=== PATIENT | female | born 1990 | race Caucasian/White ===

== ENCOUNTER 2016-04-10 17:32 | Emergency (ER) ==
--- NOTE | 2016-04-10 18:08 | PROVIDER DOCUMENTATION ---
HPI-Abdominal Pain/GI Problem - General Chief Complaint: Rectal Bleeding Stated Complaint: RECTAL BLEED Time Seen by Provider: 04/10/16 17:45 Source: patient Allergies/Adverse Reactions: Patient Allergies Allergy/AdvReac Type Severity Reaction Status Date / Time cefprozil [From Cefzil] Allergy Unknown Unknown Verified 04/10/16 17:50 Penicillins Allergy Unknown Unknown Verified 04/10/16 17:50 Home Medications: Home Medication List Medication Instructions Recorded Confirmed Last Taken Type Polyethylene Glycol 3350 [Miralax] 510 gm PO DAILY #1 powder 04/10/16 Unknown Rx - History of Present Illness-ABD Nature of Presenting Problems: 25 y/o WF c/o rectal bleeding x 2 today. States it happened after she had a BM. Only has 2-3 BMs a week. Denies abdominal pain, nausea or vomiting. She is anxious about this. States only when she wipes, bright red blood. Does not know of any hemorrhoids. She put a tampon in to make sure it was not her menses and states not blood on the tampon. Review of Systems - Adult - REVIEW OF SYSTEMS - ADULT Constitutional: reports: no symptoms reported. denies: chills, fever, fatique Eyes: reports: no symptoms reported. denies: decreased vision, blurred vision, double vision, eye pain Ears, Nose, Mouth & Throat: reports: no symptoms reported. denies: ear pain, nose pain, throat pain Cardiovascular: reports: no symptoms reported. denies: chest pain, palpitations Respiratory: reports: no symptoms reported. denies: cough, shortness of breath Gastrointestinal: reports: see HPI, rectal bleeding. denies: abdominal pain, diarrhea, nausea, vomiting Genitourinary: reports: no symptoms reported. denies: dysuria, discharge, frequency, incontinence Musculoskeletal: reports: no symptoms reported. denies: bone pain, back pain, muscle aches Integumentary: reports: no symptoms reported. denies: rash Neurological: reports: no symptoms reported. denies: dizziness/vertigo, headache/migraines Psychiatric: reports: no symptoms reported Endocrine: reports: no symptoms reported Hematologic/Lymphatic: reports: no symptoms reported Allergic/Immunologic: reports: no symptoms reported All Other Systems: Reviewed and Negative Past History - Adult - PAST MEDICAL HISTORY-ADULT Review of Records: reports: Old Records Reviewed, Nursing Assessment Review, Medications Reviewed, Social history reviewed & non-contributory. Major Childhood Illnesses: reports: denies history Cardiovascular: reports: denies history Respiratory: reports: denies history Gastrointestinal: reports: GERD Obstetrical/Gynecological: reports: ectopic Genitourinary: reports: denies history Musculoskeletal: reports: denies history Neurological: reports: denies history Psychiatric: reports: bipolar, depression Endocrine/Immune: reports: denies history Other Conditions: reports: denies history - PRIOR SURGERIES/PROCEDURES Surgical/Procedure History: reports: BTL, , tonsillectomy - IMMUNIZATION STATUS Childhood Immunizations: See Nurse Assessment Flu Vaccine: See Nurse Assessment - FAMILY HISTORY Family History: reviewed, not pertinent - SOCIAL HISTORY Smoking: less than 1 pack/day Provider spent 3-5 mins advising pt. on dangers of tobacco.: Discussed manners to quit use, and f/u contacts for add'l counseling. Substance Use: marijuana Alcohol Use Frequency: occasionally Living Situation: family Physical Exam-General - PHYSICAL EXAM-ADULT Initial Vital Signs Reviewed: Yes - CONSTITUTIONAL General Appearance: appears well, alert, anxious - EYES Eyes: PERRL/EOMI, pink conjunctivae - HEAD, EARS, NOSE, MOUTH & THROAT HENMT: normocephalic/atraumatic, moist mucous membranes - NECK Neck: non-tender, full range of motion, supple, normal inspection - RESPIRATORY Respiratory: chest non-tender, lungs clear, normal breath sounds, no pleuratic chest pain, no respiratory distress, no accessory muscle use. negative: respiratory distress, decreased breath sounds, accessory muscle use, crackles, rales, rhonchi, wheezing - CARDIOVASCULAR Cardiovascular: normal peripheral pulses, regular rate, rhythm - GASTROINTESTINAL (ABDOMEN) Abdominal Exam: normal bowel sounds, non tender, soft, no organomegaly, no pulsatile mass. negative: abdominal bruit, abnormal bowel sounds, distended, guarding, rigid, rebound, tenderness - GENITOURINARY Rectal Exam: hemorrhoids (internal), tenderness Hemoccult Exam: heme negative stool - MUSCULOSKELETAL Extremity: normal gait - SKIN Integumentary: normal color, normal turgor, warm/dry - NEUROLOGIC Neurologic: grossly normal, no motor/sensory deficits - PSYCHIATRIC Psych/Mental Status: normal mood/affect, normal thought content, normal thought process, oriented x 3 Progress - PLAN OF CARE/RESULTS Progress/Plan/Lab Results: Vital Signs Temp Pulse Resp BP Pulse Ox 04/10/16 17:37 98.4 F 130 H 26 H 118/83 100 cefprozil [From Cefzil] Allergy (Unknown, Verified 04/10/16 17:50) Unknown Penicillins Allergy (Unknown, Verified 04/10/16 17:50) Unknown Polyethylene Glycol 3350 [Miralax] 510 gm PO DAILY #1 powder 04/10/16 Laboratory 04/10/16 18:18 WBC 7.06 RBC 4.88 Hgb 14.7 Hct 43.0 MCV 88.1 MCH 30.1 MCHC 34.2 RDW Std Deviation 13.8 Plt Count 242 MPV 10.8 H Immature Gran % (Auto) 0.0 Neut % (Auto) 54.3 Lymph % (Auto) 32.0 Clayton % (Auto) 11.2 H Eos % (Auto) 1.7 Baso % (Auto) 0.8 Immature Gran # (Auto) 0.00 Neut # (Auto) 3.83 Lymph # (Auto) 2.26 Clayton # (Auto) 0.79 H Eos # (Auto) 0.12 Baso # (Auto) 0.06 Orders Category Date Time Status CBC WITH ELECTRONIC DIFF [HEME] Stat Lab 04/10/16 18:18 Completed OCCULT BLOOD SCREENING [STOOL] Stat Lab 04/10/16 17:57 Completed occult negative Departure - Departure Time of Disposition Order: 18:37 DIAGNOSIS: Hemorrhoid Qualifiers: Hemorrhoid type: unspecified Qualified Code(s): K64.9 - Unspecified hemorrhoids Disposition: HOME 01 Certified Medical Emergency: Emergent Condition: Stable Additional Instructions: ED Follow Up Instructions: You have been treated by a care provider in the Emergency Department. These instructions are being provided to you so you can have an understanding of how to care for yourself upon discharge. Upon discharge from the Emergency Department, you are responsible for making arrangements for follow-up care by a physician of your choice. Take all prescribed medications as directed. Return to the Emergency Department immediately for any new or worsening symptoms. You may call the Physician Referral phone number at [phone] to obtain a list of Physicians who are taking new patients. Prescriptions: Polyethylene Glycol 3350 [Miralax] 510 gm PO DAILY #1 powder Referrals: None,PCP [Primary Care Provider] - Forms: Return to School/Parent Work Instructions: Hemorrhoids, [id number], Sitz Bath, [id number] Attestation - Physician/ FERMIN Attestation Patient care was provided by Advanced Practice Provider:: Yes Advanced Practice Provider:: Marcy Briseno Advanced Practice Provider documentation review:: The Mid-level provider documentation, treatment plan and medical decision making was reviewed by the physician who agrees with all treatment and medical decision making by the MLP.
[2016-04-10 18:27] LABS: MANUAL DIFF NEEDED? NO
[2016-04-10 18:29] LABS: BASO% 0.8 % (0.0-0.8); EOS# 0.12 X1000 (0.0-0.7); EOS% 1.7 % (0.0-10.0); HEMOGLOBIN 14.7 g/dL (12.0-16.0); LYMPH# 2.26 X1000 (1.2-3.4); MCH 30.1 PG (27-31); MCHC 34.2 g/dL (33-37); MCV 88.1 FL (81-99); MONO# 0.79 X1000 (0.11-0.59); MONO% 11.2 % (1.7-9.3); MPV 10.8 FL (7.4-10.4); NEUT% 54.3 % (42.2-75.2); PLT 242 X1000 (130-400); RBC 4.88 XMIL (4.2-5.4)
[2016-04-10 18:54] VITALS: BP 122/65
== END 2016-04-10 18:53 | disposition home or self-care (01) ==
LOC: ED 17:32 → SUPCPDRO 17:32 → ED 18:53
DX: K64.8 Other hemorrhoids (principal); K62.5 Hemorrhage of anus and rectum; K21.9 Gastro-esophageal reflux disease without esophagitis; F31.9 Bipolar disorder, unspecified; F32.9 Major depressive disorder, single episode, unspecified
CPT/HCPCS: 82270; 85025